=== PATIENT | male | born 1975 | race African-American/Black ===

== ENCOUNTER 2017-12-18 14:06 | Emergency (ER) | payer MEDICAID, OTHER ==
[~2017-12-18] VITALS: Ht 175.3 cm; Wt 68.0 kg
[2017-12-18 14:25] VITALS: BP 112/79
[2017-12-18 15:14] LABS: Urine Bacteria NONE SEEN /hpf (None Seen); Urine Blood Negative /uL (Negative); Urine Mucus FEW (None Seen); Urine Specific Gravity 1.025 (1.001-1.035); Urine WBC 24 /hpf (0 - 3)
== END 2017-12-18 15:33 | disposition home or self-care (01) ==
LOC: ER 14:06
DX: N39.0 Urinary tract infection, site not specified (principal); F17.210 Nicotine dependence, cigarettes, uncomplicated; Z88.8 Allergy status to other drugs, medicaments and biological substances
CPT/HCPCS: 74176; 81001